=== PATIENT | male | born 1995 | race Caucasian/White ===

== ENCOUNTER 2019-08-06 18:01 | Emergency (ER) | payer MEDICAID ==
[~2019-08-06] VITALS: Ht 177.8 cm; Wt 98.0 kg
[2019-08-06] MEDS ORDERED: CARB100C9 MT (18:11)
[2019-08-06] MEDS ORDERED: TOPI15CA11 PO (18:11)
[2019-08-06 18:40] LABS: HEMATOCRIT. 45.1 % (42.0-52.0); HEMOGLOBIN. 15.3 g/dL (14.0-18.0); MEAN CORPUSCULAR VOLUME 85.6 fL (80.0-94.0); MEAN PLATELET VOLUME 8.3 fl (7.4-10.4); PLATELET 159 x1000/uL (130-400); RED BLOOD CELL COUNT 5.26 mill/uL (4.7-6.1); RED CELL DISTRIBUTION WIDTH 13.7 % (11.6-14.6)
[2019-08-06 18:46] LABS: CHLORIDE 110 mEq/L (98-107)
[2019-08-06 18:56] LABS: CARBAMAZEPINE 13.2 ug/mL (4-12)
[2019-08-06 19:41] LABS: PLATELET ESTIMATE NORMAL
[2019-08-06 20:20] VITALS: BP 122/68
== END 2019-08-06 20:27 | disposition home or self-care (01) ==
LOC: ER 18:01
DX: G40.909 Epilepsy, unspecified, not intractable, without status epilepticus (principal); R05 Cough; F84.0 Autistic disorder
CPT/HCPCS: 36415; 71045; 80053; 80156; 85025; 99284

== ENCOUNTER 2023-06-06 23:11 | Emergency (ER) | payer MEDICAID, OTHER ==
[~2023-06-06] VITALS: Ht 175.3 cm; Wt 68.0 kg
[~2023-06-06 23:11] MED LIST: CARB100C9 MT; TOPI15CA11 PO
[2023-06-06 23:12] VITALS: BP 98/52; PULSE 110; RESP 18; TEMP 98.5; O2SAT 100
[2023-06-06 23:28] LABS: BASOPHILS % 0.6 % (0.0-2.0); EOSINOPHILS % 1.6 % (0.0-5.0); HEMATOCRIT. 50.3 % (42.0-52.0); LYMPHOCYTES % 20.6 % (20.0-50.0); MEAN CORPUSCULAR HEMOGLOBIN 29.1 pg (28.0-32.0); MEAN CORPUSCULAR HGB CONC 31.9 g/dL (31.0-37.0); MEAN CORPUSCULAR VOLUME 91.3 fL (80.0-94.0); MONOCYTES % 5.5 % (2.0-8.0); NEUTROPHILS % 71.7 % (40.0-76.0); PLATELET 197 x1000/uL (130-400); RED BLOOD CELL COUNT 5.51 mill/uL (4.7-6.1); RED CELL DISTRIBUTION WIDTH 13.7 % (11.6-14.6); WHITE BLOOD COUNT 10.4 x1000/uL (4.5-11.0)
[2023-06-06 23:41] LABS: ALANINE AMINOTRANSFERASE 22 IU/L (10-49); ALBUMIN 4.1 g/dL (3.2-4.8); ASPARTATE AMINOTRANSFERASE 22 IU/L (<34); BILIRUBIN TOTAL 0.2 mg/dL (0.1-1.0); CALCIUM 8.4 mg/dL (8.7-10.4); CHLORIDE 107 mEq/L (98-107); GLUCOSE 110 mg/dL (70-105); POTASSIUM 3.5 mEq/L (3.5-5.1); PROTEIN TOTAL 7.5 g/dL (6.0-8.3); SODIUM 140 mEq/L (136-145); UREA NITROGEN BLOOD 5 mg/dL (9-23)
[2023-06-07 00:28] LABS: ETHANOL BLOOD < 10 mg/dL (<10)
[2023-06-07 00:35] LABS: CARBON DIOXIDE < 10 mEq/L (21-32)
[2023-06-07 00:36] LABS: CARBAMAZEPINE 12.9 ug/mL (4-12)
[2023-06-07] MEDS ORDERED: SODIUM CHLORIDE 0.9% 1,000 ML IV ONE (00:45)
[2023-06-07 01:04] LABS: CREATINE KINASE 50 IU/L (46-171)
== END 2023-06-07 01:24 | disposition left against medical advice (07) ==
LOC: ER 23:11
DX: G40.901 Epilepsy, unspecified, not intractable, with status epilepticus (principal); E87.20 Acidosis, unspecified; E86.0 Dehydration; F84.0 Autistic disorder
CPT/HCPCS: 36415; 71045; 80053; 80156; 80320; 82550; 85025; 99284; J7030; G0480